=== PATIENT | female | born 1960 | race Caucasian/White ===

== ENCOUNTER 2016-11-14 00:02 | Emergency (ER) | payer BC ==
[~2016-11-14] VITALS: Ht 162.6 cm; Wt 74.3 kg
[~2016-11-14 00:02] MED LIST: HYDROCODON-ACE1 EAC7 PO; LITE COAT ASPI325 M1 PO; MOBIC15 MG PO; ORTHO-NOVUM1 EAC1 PO; PREVACID30 MG PO; SONATA10 MG PO; TENORMIN25 MG PO; ULTRAM50 MG PO; WELLBUTRIN XL300 MG PO; ZESTRIL10 MG PO
[2016-11-14 01:29] LABS: HEMATOCRIT 43.4 % (36.0-46.0); MCH 32.8 PG (29.0-34.0); MCHC 34.3 G/DL (30.0-36.0); MCV 95.6 FL (83-99); MEAN PLAT.VOLUME 10.2 uM^3 (9.5-12.4); PLATELET COUNT 204 K/uL (156-360); RBC DIS.WIDTH-CV 13.2 % (11.8-14.6); RBC DIS.WIDTH-SD 44.3 % (39-53); RED BLOOD COUNT 4.54 M/uL (3.80-5.20); WHITE BLOOD COUNT 5.8 K/uL (4.1-10.2)
[2016-11-14 01:39] LABS: CHLORIDE 109 mEq/L (99-109); POTASSIUM 3.9 mEq/L (3.7-5.4); SODIUM 145 mEq/L (136-147)
[2016-11-14 01:41] LABS: GLUCOSE 96 mg/dL (70-99)
[2016-11-14 01:42] LABS: ANION GAP 7 MEQ/L (2-14)
[2016-11-14 01:45] LABS: GFR ESTIMATE (CALCULATED) > 59 mL/min/
[2016-11-14 01:46] LABS: UREA NITROGEN (BUN) 18 mg/dL (9-23)
[2016-11-14 01:50] LABS: TROP-I INTERPRETATION NEGATIVE; TROPONIN-I < 0.01 ng/mL (0.0-0.30)
[2016-11-14 02:44] VITALS: BP 132/90
== END 2016-11-14 02:45 | disposition home or self-care (01) ==
LOC: EME 00:02
DX: R00.2 Palpitations (principal); Z87.891 Personal history of nicotine dependence; I10 Essential (primary) hypertension; Z79.82 Long term (current) use of aspirin; K21.9 Gastro-esophageal reflux disease without esophagitis
CPT/HCPCS: 71020; 80048; 84484; 85027; 93005; 99281; 99284